=== PATIENT | male | born 1980 | race African-American/Black ===

== ENCOUNTER 2017-01-09 05:19 | Emergency (ER) | payer MEDICAID ==
[~2017-01-09] VITALS: Ht 182.9 cm; Wt 159.0 kg
[2017-01-09 09:02] VITALS: BP 196/160
== END 2017-01-09 09:52 | disposition left against medical advice (07) ==
LOC: ER 05:19
DX: M79.604 Pain in right leg (principal); F17.200 Nicotine dependence, unspecified, uncomplicated; F31.9 Bipolar disorder, unspecified
CPT/HCPCS: 73502; 73552; 73590; 73610; 99284

== ENCOUNTER 2017-01-09 16:28 | Emergency (ER) | payer MEDICAID ==
[~2017-01-09] VITALS: Ht 182.9 cm; Wt 180.0 kg
[2017-01-10 01:25] VITALS: BP 155/98
== END 2017-01-10 01:37 | disposition home or self-care (01) ==
LOC: ER 17:06
DX: M79.604 Pain in right leg (principal); F31.9 Bipolar disorder, unspecified; F20.9 Schizophrenia, unspecified; R03.0 Elevated blood-pressure reading, without diagnosis of hypertension; V03.10XA Pedestrian on foot injured in collision with car, pick-up truck or van in traffic accident, initial encounter; Y92.410 Unspecified street and highway as the place of occurrence of the external cause
CPT/HCPCS: 93971; 99284